=== PATIENT | female | born 1975 | race Caucasian/White ===

== ENCOUNTER → 2020-03-14 | Outpatient (CLI) | payer BC | LOC: KOH-I 11:21 | DX: M54.40 Lumbago with sciatica, unspecified side (principal); M54.9 Dorsalgia, unspecified; M25.511 Pain in right shoulder; M54.2 Cervicalgia; M50.322 Other cervical disc degeneration at C5-C6 level | CPT/HCPCS: 72040; 72070; 72100; 73030 ==

== ENCOUNTER → 2021-07-08 | Day surgery (SDC) | payer BC | END | disposition home or self-care (01) | LOC: OR 07:24 | DX: Z12.11 Encounter for screening for malignant neoplasm of colon (principal); E66.8 Other obesity; Z68.34 Body mass index [BMI] 34.0-34.9, adult | CPT/HCPCS: 84703; J7040 ==